=== PATIENT | male | born 1955 | race Caucasian/White ===

== ENCOUNTER → 2016-07-21 | Outpatient (CLI) | payer OTHER ==
[~2016-07-21] MED LIST: NO MEDICATIONS
--- NOTE | ~2016-07-21 | PFT ---
[id number] [facility] [address] [facility]. [place], [place] [address] [id number] O MR#: [id number] NAME: MARGRET BAL ROOM: SEX: M STUDY DATE/TIME: : 1955 AGE: STUDY DESCRIPTION: Attending Physician: Gina Garcia M.D. Referring Physician: Gina Garcia M.D. Primary Care Physician: Talat Lowery M.D. PULMONARY DIAGNOSTIC REPORT EXAM Pulmonary Function Test DESCRIPTION Spirometry reviewed. FEV1 is 46, FVC 50, ratio is 71 consistent with very severe air flow obstruction. Good bronchodilator response. Lung volumes show air trapping. DLCO is reduced. Dictated by... Ryder Bradshaw/maurice TD: 08/07/2016 07:03 JOB #: [id number] PULMONARY DIAGNOSTIC REPORT
--- NOTE | ~2016-07-21 | CT57 ---
[facility] A Service of [facility] & [facility] RADIOLOGY TEXT RESULTS PATIENT: MARGRET BAL LOCATION: [facility] : 59 UNIT #: [id number] AGE: [address]: Gina Garcia MD SEX: M ORDER DR: [id number] [place], [place] [address] [id number] O MR#: [id number] Acc #: [id number] NAME: MARGRET BAL : 1955 SEX: M STUDY DATE/TIME: 07/21/2016 9:12 UNIT: [facility] ROOM: STUDY DESCRIPTION: CT Chest Wo Cont Attending Physician: Gina Garcia M.D. Referring Physician: Gina Garcia M.D. Ordering Physician: Gina Garcia M.D. Primary Care Physician: Talat Lowery M.D. MEDICAL IMAGING REPORT This report is preliminary unless electronic signature is present EXAM CT chest, without contrast. HISTORY Chronic cough, chest pain, shortness of air for the past 1-[address] of the chest. This CT exam was performed with one or more of the following radiation dose reduction techniques: automatic exposure control, adjustment of mA and/or kV according to patient size, and iterative reconstruction. COMPARISON STUDIES None FINDINGS Significant emphysema. There is linear atelectasis at the left lung base. No dense consolidation. No pleural fluid, no pneumothorax. Coronary artery calcification. No pathologically enlarged hilar or mediastinal adenopathy. No acute findings in the included upper abdomen. No aggressive-appearing bone lesion. IMPRESSION 1. Significant emphysema. No acute findings in the chest. 2. Coronary artery calcification. Dictated by... Silas Wilcox M.D. THIS IS AN ELECTRONICALLY VERIFIED REPORT [facility] A Service of [facility] & [facility] RADIOLOGY TEXT RESULTS PATIENT: MARGRET BAL LOCATION: [facility] : 59 UNIT #: [id number] AGE: [address]: Gina Garcia MD SEX: M ORDER DR: Silas Wilcox M.D. at 07/21/2016 4:52 PM ADDISON/emelina TD: 07/21/2016 11:45 JOB #: [id number] MEDICAL IMAGING REPORT COPY
== END | disposition home or self-care (01) ==
LOC: CRC 07:38
DX: R05 Cough (principal); J43.9 Emphysema, unspecified; I25.10 Atherosclerotic heart disease of native coronary artery without angina pectoris
CPT/HCPCS: 71250; 94060; 94726; 94729